=== PATIENT | male | born 1990 | race Caucasian/White ===

== ENCOUNTER 2020-10-13 10:14 | Emergency (ER) | payer OTHER ==
[~2020-10-13] VITALS: Ht 188 cm; Wt 108.9 kg
[2020-10-13] MEDS ORDERED: CETIRIZINE HCL10 MG PO (11:04)
[2020-10-13] MEDS ORDERED: NORVASC10 MG PO (11:04)
[2020-10-13] MEDS ORDERED: ALLERGY EYE DRO10 M1 OP (11:05)
[2020-10-13] MEDS ORDERED: COZAAR50 MG PO (11:09)
[2020-10-13] MEDS ORDERED: AUGMENTIN 875-1 EACH PO (11:18)
[2020-10-13] MEDS ORDERED: NAPROXEN375 MG PO (11:19)
[2020-10-13] MEDS ORDERED: IMODIUM A-D2 M2 PO (11:20)
[2020-10-13] MEDS ORDERED: VANCOMYCIN HCL125 MG PO (12:43)
[2021-01-29] MEDS ORDERED: MELATONIN1 MG PO (12:06)
[2021-01-29] MEDS ORDERED: LEXAPRO10 MG PO (12:06)
== END 2020-10-13 13:00 | disposition home or self-care (01) ==
LOC: ED 10:14
DX: A04.72 Enterocolitis due to Clostridium difficile, not specified as recurrent (principal); Z79.899 Other long term (current) drug therapy
CPT/HCPCS: 74177; 80053; 83690; 83735; 85025; 87045; 87046; 87077; 87493; 99284-25; J1885; J2405; J7030; Q9967

== ENCOUNTER 2021-03-06 06:33 | Day surgery (SDC) | payer OTHER ==
[~2021-03-06] VITALS: Ht 188 cm; Wt 113.0 kg
[~2021-03-06 06:33] MED LIST: ALLERGY EYE DRO10 M1 OP; AUGMENTIN 875-1 EACH PO; CETIRIZINE HCL10 MG PO; COZAAR50 MG PO; IMODIUM A-D2 M2 PO; LEXAPRO10 MG PO; MELATONIN1 MG PO; NAPROXEN375 MG PO; NORVASC10 MG PO; VANCOMYCIN HCL125 MG PO
--- NOTE | 2021-03-06 06:56 | NUR ---
COVID TEST DONE PER DR ORDER. COVID TEST COLLECTED FROM BOTH NARES W/O ISSUE. TOLERATED WELL.
--- NOTE | 2021-03-06 10:23 | NUR ---
[facility]U AWAKE WITH NO C/O'S. ABD SOFT. 1000 SIPPING ON WATER. GUARDS AT BEDSIDE. 1010 DC INSTRUCTIONS GIVEN. ALL QUESTIONS ANSWERED. LEFT VIA W/C WITH GUARDS.
--- NOTE | 2021-03-07 07:21 | OR ---
[facility] [address], [place] [address] Signed DATE OF OPERATION: 03/06/2021 SURGEON: Trupti Ferguson MD PREOPERATIVE DIAGNOSES: 1. Recent, resolved pancolitis following antibiotics. 2. Father with colon polyps, age 21 and age 52. POSTOPERATIVE DIAGNOSIS: Unremarkable colonoscopy. PROCEDURE: Colonoscopy with cold biopsies of the right colon, transverse colon, left colon and rectum. ESTIMATED BLOOD LOSS: None. INDICATIONS: Sarbina is a 30-year-old [facility] [place]. He took antibiotics for an abscessed tooth for 7 days. He then had the tooth removed. He developed significant diarrhea and diffuse abdominal pain. He was taken to the emergency room on October 13, 2019[place] [address] scan showed his pancolitis. He went back to snf on vancomycin by mouth and did very well. He gave 2 stool samples and they were both negative for C. difficile toxin. There is no inflammatory bowel disease in the family. However, his father had colonic polyps removed at age 21 and again at age 52. I did confirm that with Sabrina this morning. His white count returned to normal at 7.2. He was asked to see me for a colonoscopy. He said his abdominal pain is resolved along with the diarrhea. He said his bowel movements are back to normal and he is eating quite well. In the office, I gave him a pamphlet on colonoscopy. He understands the nature of the test along with the risks including, but not limited to gas bloating, crampy abdominal pain, bleeding, perforation requiring surgery, and missed diagnosis. We also reviewed the need for IV conscious sedation. He had expressed understanding and wished to proceed. PROCEDURE NOTE: Sabrina was taken into the endoscopy suite and placed in the left lateral decubitus position. He was given a total of 8 mg of Versed and 150 mcg of fentanyl to cover the case. A digital rectal exam was performed and this was unremarkable. Prostate gland was ever so slightly swollen. The adult colonoscope was introduced and advanced all Electronically Signed By: TRUPTI FERGUSON MD 03/07/21 0721 PATIENT NAME: SABRINA AGUILERA OPERATIVE REPORT DATE OF : 86 REPORT #: [id number] PHYSICIAN: TRUPTI FERGUSON MD PCP: PAUL SOLIS NP REPORT IS CONFIDENTIAL AND NOT TO BE RELEASED WITHOUT AUTHORIZATION [facility] [address], [place] [address] Signed around into the cecum under direct visualization of the camera without difficulty. His prep was quite excellent. We could easily see the appendiceal orifice and the ileocecal valve. We took pictures throughout for photodocumentation. His entire colon and rectum were completely unremarkable from a visible standpoint. We took random biopsies out of the right colon, transverse colon, left colon, and rectum. Upon retroflexion of the scope, there was no additional pathology noted above the anal canal. After this, the gas was suctioned out and colonoscope removed. Sabrina tolerated the procedure quite well. RECOMMENDATIONS: I will see Sabrina back in my office in the next few weeks to review his results. He can return around age 40 for repeat colonoscopy due to the family history. Trupti Ferguson MD ALB/MODL /[id number] cc: Chart Filed Incomplete [facility] Trupti Ferguson MD Copies: CHART FILED INCOMPLETE TRUPTI FERGUSON MD ~ Electronically Signed By: TRUPTI FERGUSON MD 03/07/21 0721 PATIENT NAME: SABRINA AGUILERA OPERATIVE REPORT DATE OF : 86 REPORT #: [id number] PHYSICIAN: TRUPTI FERGUSON MD PCP: PAUL SOLIS NP REPORT IS CONFIDENTIAL AND NOT TO BE RELEASED WITHOUT AUTHORIZATION
--- NOTE | 2021-03-07 15:01 | PATH ---
[facility] [address] [place], [place] [address] Signed SPECIMEN(S): A ASCENDING COLON BIOPSY SPECIMEN(S): B TRANSVERSE COLON BIOPSY SPECIMEN(S): C DESCENDING COLON BIOPSY SPECIMEN(S): D RECTUM SPECIMEN SOURCE: A. ASCENDING COLON BIOPSY B. TRANSVERSE COLON BIOPSY C. DESCENDING COLON BIOPSY D. RECTUM CLINICAL HISTORY: Colonoscopy. Preop: History of pancolitis, probable C. diff (resolved). Postop: Unremarkable/negative. MICROSCOPIC DESCRIPTION: Histologic sections of all submitted blocks are examined by light microscopy. These findings, together with the gross examination, support the pathologic diagnosis. FINAL PATHOLOGIC DIAGNOSIS: A. Colon, ascending, biopsy: - Colonic mucosa with no histopathologic abnormality. - Negative for active, chronic, or microscopic colitis. - Negative for dysplasia or malignancy. B. Colon, transverse, biopsy: - Colonic mucosa with no histopathologic abnormality. - Negative for active, chronic, or microscopic colitis. - Negative for dysplasia or malignancy. C. Colon, descending, biopsy: - Colonic mucosa with no histopathologic abnormality. - Negative for active, chronic, or microscopic colitis. - Negative for dysplasia or malignancy. D. Colon, rectum, biopsy: - Rectal mucosa with no histopathologic abnormality. - Negative for active or chronic proctitis. - Negative for dysplasia or malignancy. NAL:cml:C2NR GROSS DESCRIPTION: Four specimens are received in four containers, labeled "KD." A. The specimen, labeled "KD," and designated on the requisition "ascending PATIENT NAME: SABRINA AGUILERA PATHOLOGY DATE OF : 86 REPORT #: [id number] PHYSICIAN: ALLAN REEVES PCP: PAUL SOLIS NP REPORT IS CONFIDENTIAL AND NOT TO BE RELEASED WITHOUT AUTHORIZATION [facility] [address], [place] [address] Signed colon," is received in formalin and consists of two leija soft tissue fragments that measure 0.3 cm in greatest dimension. The specimen is entirely submitted in cassette (A1). B. The specimen, labeled "KD, transverse colon," is received in formalin and consists of one leija soft tissue fragment that measures 0.3 cm in greatest dimension. The specimen is entirely submitted in cassette (B1). C. The specimen, labeled "KD, descending colon," is received in formalin and consists of one leija soft tissue fragment that measures 0.3 cm in greatest dimension. The specimen is entirely submitted in cassette (C1). D. The specimen, labeled "KD, rectum," is received in formalin and consists of one leija soft tissue fragment that measures 0.3 cm in greatest dimension. The specimen is entirely submitted in cassette (D1). AT (under the direct supervision of a pathologist) The Gross Description was prepared using a voice recognition system. The report was reviewed for accuracy; however, sound-alike word errors, addition and/or deletions may occur. If there is any question about this report, please contact Client Services. PERFORMING LABORATORY: The technical component was performed by [facility] [address] (Operating Room Manager: Haley Charles MD; CLIA# [id number]). [facility] [address] [address] (CLIA# [id number]). Diagnostician: Chiquita Gonzales MD Pathologist Electronically Signed 03/07/2021 Copies: ~ PATIENT NAME: WILLYSABRINAJUAN PABLO CASTELLANOS PATHOLOGY DATE OF : 86 REPORT #: [id number] PHYSICIAN: ALLAN REEVES PCP: PAUL SOLIS NP REPORT IS CONFIDENTIAL AND NOT TO BE RELEASED WITHOUT AUTHORIZATION
== END 2021-03-06 10:10 | disposition home or self-care (01) ==
LOC: OPS 06:33 → DS 06:33 → OPS 06:45 → DS 06:45 → OPS 08:15
PROVIDERS: ATTEND Colon & Rectal Surgery
PROC: 0DBL8ZX Excision of Transverse Colon, Via Natural or Artificial Opening Endoscopic, Diagnostic (ICD-10-PCS; 2021-03-06)
PROC: 0DBP8ZX Excision of Rectum, Via Natural or Artificial Opening Endoscopic, Diagnostic (ICD-10-PCS; 2021-03-06)
PROC: 0DBM8ZX Excision of Descending Colon, Via Natural or Artificial Opening Endoscopic, Diagnostic (ICD-10-PCS; 2021-03-06)
PROC: 0DBK8ZX Excision of Ascending Colon, Via Natural or Artificial Opening Endoscopic, Diagnostic (ICD-10-PCS; principal; 2021-03-06 08:15)
DX: Z12.11 Encounter for screening for malignant neoplasm of colon (principal); K52.89 Other specified noninfective gastroenteritis and colitis; Z83.71 Family history of colonic polyps; Z20.822 Contact with and (suspected) exposure to COVID-19
CPT/HCPCS: 99153; C9803; G0500; J2250; J3010; J7121; U0003